=== PATIENT | female | born 1995 | race Native Hawaiian/Other Pacific Islander ===

== ENCOUNTER 2017-12-14 20:53 | Emergency (ER) | payer BC ==
[~2017-12-14] VITALS: Ht 157.5 cm; Wt 47.6 kg
--- NOTE | 2017-12-14 21:07 | NUR ---
PT C/O RT EYE PAIN AND SWELLLING. C/O LIGHT SENSITIVITY, AND DRYNESS. PT STATES SHE WEARS CONTACTS, AND SYMPTOMS STARTED TO DEVELOP X2 WEEKS.
[2017-12-14] MEDS ORDERED: TETRACAINE HCL 0.5% OPHT DROP 2 ML BOTTLE ONE (21:28)
[2017-12-14] MEDS ORDERED: FLUORESCEIN SODIUM 1 MG STRIP ONE (21:28)
[2017-12-14] MEDS ORDERED: TETRACAINE HCL 0.5% OPHT DROP 2 ML BOTTLE OP ONE (21:30)
[2017-12-14] MEDS ORDERED: FLUORESCEIN SODIUM 1 MG STRIP OP ONE (21:30)
--- NOTE | 2017-12-14 21:37 | NUR ---
DR AVANI VIRAMONTES MD AT BEDSIDE FOR MSE.
--- NOTE | 2017-12-14 21:59 | NUR ---
Patient discharged to home in stable conditon. Written and verbal after care instructions given. Patient verbalizes understanding of instructions. Pt ambulaated from ER w/ steady gait, accompanied by significant other. Pt took all personal belongings.
[2017-12-14 22:00] VITALS: BP 114/70
== END 2017-12-14 22:00 | disposition home or self-care (01) ==
LOC: ER 20:55
DX: H20.9 Unspecified iridocyclitis (principal)
CPT/HCPCS: A4663